=== PATIENT | female | born 1980 | race Caucasian/White ===

== ENCOUNTER 2024-11-01 12:56 | Emergency (ER) | payer OTHER, SELFPAY ==
[2024-11-01 13:04] VITALS: BP 176/109; PULSE 63; RESP 16; TEMP 36.5; O2SAT 98
--- NOTE | 2024-11-01 13:12 | DI.RAD_ITS ---
Exam(s) XR SHOULDER LT COMPLETE 2+V EXAM: XR SHOULDER LT COMPLETE 2+V CLINICAL HISTORY: pain /sp fall. TECHNIQUE: 2D digital imaging was performed. Three views. COMPARISON: No exams were available for comparison FINDINGS: BONES: Fracture proximal humeral metaphysis of with some displacement and angulation. There is some impaction. There are small comminuted fragments. No bony destructive lesion is seen. JOINTS: No dislocation present. [id number] degenerative changes of the glenohumeral joint and. Minimal degenerative changes of AC joint. AC joint is not widened. SOFT TISSUE: Normal. IMPRESSION: Comminuted fracture of the proximal humeral metaphysis. DATA REPOSITORY: RADIATION DOSE DELIVERED:
--- NOTE | 2024-11-01 13:25 | ED.GENADUL_ITS ---
Discharge Plan Disposition Patient Disposition: Home Condition: Stable Discharge Details Clinical Impression: Closed left humeral fracture Primary Care Provider: Unknown,Unknown ED Provider: Kaleb Choudhury Home Meds and New Rx's Prescriptions: No Action No Known Home Meds Discharge Instructions Additional Instructions: You have a fracture (broken bone) with your humerus. Placed a referral to try and see an orthopedist in [place]. You can take 600 mg of ibuprofen and 1000 mg of acetaminophen every 6 hours as needed If you feel more ill or have severe worsening of your pain return to the emergency department for reevaluation HPI General Mode of arrival: ambulatory . Date/Time Provider Initiated Documentation: 11/01/24 12:57 . Limitations to Documentation: no limitations . Information obtained by: patient . History of Present Illness 44 year old F presents to the emergency department with the chief complaint of left shoulder pain s/p fall, described as moderate, Quality is described as aching, Patient started experiencing this hour(s) (2) and it has been constant. Rest improves symptom(s), Movement worsens symptoms . Patient notes no other symptoms.. Patient did receive the following treatments prior to arrival, none Related Data Home Medications ?Medication ?Instructions ?Recorded ?Confirmed Unknown [No Known Home Meds] 11/01/24 11/01/24 Allergies Allergy/AdvReac Type Severity Reaction Status Date / Time No Known Allergies Allergy Unverified 11/01/24 13:47 General Stated Complaint: Orthopedic TABATHA: 3 Review of Systems All systems reviewed & are unremarkable except as noted in HPI and below Constitutional Constitutional: Denies chills, Denies fever(s) and Denies weakness Cardiovascular Cardiovascular: Denies chest pain and Denies dyspnea Respiratory Respiratory: Denies dyspnea Gastrointestinal Gastrointestinal: Denies abdominal pain, Denies nausea and Denies vomiting Neurologic Neurologic: Denies weakness Exam Const General: no acute distress Orientation: alert HENMT Head: normal to inspection Ears: external ears normal General nose exam: external nose normal Mouth: moist mucous membranes Eyes General: appearance normal, both eyes and all related structures Neck Neck: normal visual inspection Resp Effort & Inspection: normal respiratory effort and able to speak in complete sentences Cardio Rate: regular rate Skin General skin exam: no rashes or lesions noted Neuro General: patient alert and patient oriented x3 Extrem General: capillary refill normal and no edema Psych Mental Status: mental status grossly normal Course Vital Signs Vital signs: Vital Signs Temperature 36.5 C 11/01/24 13:04 Pulse 63 11/01/24 13:04 Respiratory Rate 16 11/01/24 13:04 Blood Pressure 176/109 H 11/01/24 13:04 Pulse Oximetry 98 11/01/24 13:04 Temperature 36.5 C 11/01/24 13:04 Pulse 63 11/01/24 13:04 Respiratory Rate 16 11/01/24 13:04 Blood Pressure 176/109 H 11/01/24 13:04 Pulse Oximetry 98 11/01/24 13:04 Oxygen Delivery Method Room Air 11/01/24 13:04 Oxygen Flow Rate 0 11/01/24 13:04 Medical Decision Making 44-year-old female who denies any chronic medical problems comes in with left shoulder pain. 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 Did not hit her head or have loss of consciousness. She has pain over the anterior lateral shoulder with minimal range of motion of the shoulder due to pain. She is no signs of trauma to the head, normal gait on arrival. No midline C-spine, T- spine or L-spine tenderness. She has no tenderness in the mid to distal humerus, elbow, forearm wrist or hand. She is intact distal sensation and pulses. Concern for possible fracture versus dislocation, will obtain x-ray to further evaluate. Patient stable, x-ray does show proximal humeral head neck fracture with mild impaction. She is neurovascularly intact. No severe pain to suggest compartment syndrome. Sling was provided, she [place] and prefers to see a orthopedic surgeon in [place]. I placed on her follow-up list to assist seeing the orthopedist up there preferably within a week. Return precautions given. Patient declined prescription pain medication Differential Diagnosis Differential Diagnosis: Fracture, dislocation, contusion, sprain Imaging Data Radiologic Study: Attestation: I personally reviewed and interpreted this imaging study as follows: Imaging: X-Ray Radiologist's impression: PROCEDURE INFORMATION: Exam: XR Left Shoulder Exam date and time: 11/01/2024 1:29 PM Age: 44 years old Clinical indication: Injury or trauma; Fall; Fracture, traumatic injury; Closed fracture; Humerus; Left TECHNIQUE: Imaging protocol: Radiologic exam of the left shoulder. Views: 2 or more views. COMPARISON: No relevant prior studies available. FINDINGS: Bones/joints: There is a slightly comminuted proximal humeral shaft and neck fracture with mild impaction and minimal lateral offset. The glenohumeral articulation appears intact. Soft tissues: Normal. IMPRESSION: Comminuted proximal humeral shaft and neck fracture with mild impaction. Quality:SDOH Health Related Social Needs: No Data to Display PFSH All Active Problems (Updated 11/01/24 @ 14:09 by Kaleb Choudhury MD) Closed left humeral fracture (Acute) Social History Smoking/Tobacco Use Status: Unknown Smoking risk assessment performed?: Yes Substance use type: unknown Do you feel safe at home: Yes Do you feel safe in your relationship?: Yes
[2024-11-01] MEDS: Acetaminophen 500 MG TAB 1000 MG PO (13:48)
[2024-11-01] MEDS: Ibuprofen 600 MG TAB PO (13:49)
--- NOTE | 2024-11-01 13:55 | DI.VRAD_ITS ---
PROCEDURE INFORMATION: Exam: XR Left Shoulder Exam date and time: 11/01/2024 1:29 PM Age: 44 years old Clinical indication: Injury or trauma; Fall; Fracture, traumatic injury; Closed fracture; Humerus; Left TECHNIQUE: Imaging protocol: Radiologic exam of the left shoulder. Views: 2 or more views. COMPARISON: No relevant prior studies available. FINDINGS: Bones/joints: There is a slightly comminuted proximal humeral shaft and neck fracture with mild impaction and minimal lateral offset. The glenohumeral articulation appears intact. Soft tissues: Normal. IMPRESSION: Comminuted proximal humeral shaft and neck fracture with mild impaction. Dictated and Authenticated by: Betsey Serrato MD. Ordering:SANTOS Manuel MD
--- NOTE | 2024-11-01 18:01 | NUR.NOTE ---
Nursing Note: Received call from patient that she had declined pain medication prescription when seen here earlier today but now having increased pain and requesting a script be sent to [facility] [address] in [facility]. Message given to Dr. Acevedo who will send a prescription.
== END 2024-11-01 14:37 | disposition home or self-care (01) ==
PROVIDERS: Emergency Provider Emergency Medicine
DX: S49.092A Other physeal fracture of upper end of humerus, left arm, initial encounter for closed fracture; V68.4XXA Person boarding or alighting a heavy transport vehicle injured in noncollision transport accident, initial encounter; Y99.0 Civilian activity done for income or pay
CPT/HCPCS: 99283; 73030